=== PATIENT | male | born 1990 | race Caucasian/White ===

== ENCOUNTER 2018-02-01 18:13 | Emergency (ER) | payer BC ==
[~2018-02-01] VITALS: Ht 185.4 cm; Wt 95.3 kg
[2018-02-01 18:51] VITALS: BP 124/70
--- NOTE | 2018-02-01 19:39 | NUR ---
PT TAKEN TO BED 3
[2018-02-01] MEDS ORDERED: LIDOCAINE/EPI 1% 1:100000 20 ML VIAL INJ ONE ×2 (19:55→19:57)
--- NOTE | 2018-02-01 20:00 | NUR ---
PT PRESENTS TO ED WITH LAC TO LT HAND. AAO X4, RESPIRATIONS EVEN AND UNLABORED. LT HAND LACERATION, BLEEDING, APPLIED PRESSURE DRESSING. ABLE TO MOVE ALL FINGERS. CAP REFILLS LESS THAN 3 SECS. VSS, ER MD MADE AWARE. WILL CONTINUE TO MONITOR
[2018-02-01] MEDS ORDERED: BACITRACIN OINT 500 UNITS/GM PKT TP ONE (20:30)
--- NOTE | 2018-02-01 20:30 | NUR ---
PERFORM SUTURE AT BEDSIDE.
[2018-02-01 21:28] VITALS: BP 125/71
--- NOTE | 2018-02-01 21:28 | NUR ---
Patient discharged with v/s stable. Written and verbal after care instructions given and explained. Patient alert, oriented and verbalized understanding of instructions. Ambulatory with steady gait. All questions addressed prior to discharge. ID band removed. Patient advised to follow up with PMD. Rx of KEFLEX 500 MG, NAPROSYN 500 MG given. Patient educated on indication of medication including possible reaction and side effects. Opportunity to ask questions provided and answered.
== END 2018-02-01 21:28 | disposition home or self-care (01) ==
LOC: MED 18:13
DX: S61.412A Laceration without foreign body of left hand, initial encounter (principal); Z23 Encounter for immunization; W45.8XXA Other foreign body or object entering through skin, initial encounter; Y93.89 Activity, other specified; Y92.89 Other specified places as the place of occurrence of the external cause; Y99.0 Civilian activity done for income or pay
CPT/HCPCS: 12001; 73130; 90471; 90715; 99284; J2001